=== PATIENT | female | born 1960 | race Caucasian/White ===

== ENCOUNTER → 2019-08-22 | Outpatient (CLI) | payer SELFPAY ==
[~2019-08-22] MED LIST: AMARYL1 M1 PO; AMARYL1 MG PO; BP MED; CALCIUM/MAGNESI1 T13 PO; CARVEDILOL6.25 MG PO; DYAZIDE 25 MG-31 CAP PO; FISH OIL500 MG PO; HUMALOG100 U/ML SC; JANUVIA25 MG PO; LEVEMIR10 ML SC; LEVEMIR100 U/ML SC; LISINOPRIL/HCTZ1 TA1 PO; METFORMIN500 MG PO; MULTIPLE VITAMI1 TAB PO; NEXIUM40 MG PO; ONDANSETRON HYDR4 M1 PO; PHENERGAN W/ DE30 ML PO; RITE AID MELATO10 MG PO; SIMVASTATIN40 MG PO; TYLENOL PM EX-1 EACH PO; VIBRAMYCIN100 MG PO; ZITHROMAX Z PA250 MG PO; [UNRECOGNIZED DRUG - OTHER] SG
== END | disposition home or self-care (01) ==
LOC: ORTHO 01:16
DX: M79.641 Pain in right hand (principal)

== ENCOUNTER → 2019-08-23 | Outpatient (CLI) | payer SELFPAY ==
[2019-08-23 09:37] LABS: BASO % 0.6 % (0.0-1.0); EOS # 0.1 10*3/uL (0.0-0.4); EOS % 1.8 % (1.0-4.0); HEMATOCRIT 35.4 % (37.0-47.0); HEMOGLOBIN 10.8 g/dl (12.0-16.0); LYMPH # 1.9 10*3/uL (1.3-4.4); LYMPH % 28.4 % (27.0-41.0); MEAN CELL VOLUME 78.3 fl (81.0-99.0); MEAN CORPUSCULAR HGB 23.9 pg (27.0-31.0); MEAN CORPUSCULAR HGB CONC 30.5 g/dl (33.0-37.0); MONO # 0.4 10*3/uL (0.1-1.0); MONO % 5.8 % (3.0-9.0); NEUT # 4.1 10*3/uL (2.3-7.9); NEUT % 62.9 % (47.0-73.0); PLATELET COUNT AUTOMATED 174 10*3/uL (130-400); RED BLOOD COUNT 4.52 10*6/uL (4.10-5.10); RED CELL DISTRI WIDTH 15.5 % (0-14.5); WHITE BLOOD COUNT 6.5 10*3/uL (4.8-10.8)
[2019-08-23 09:54] LABS: ALBUMIN 3.5 gm/dl (3.1-4.5); ALKALINE PHOSPHATASE 51 U/L (45-117); BUN 17 mg/dl (7-24); CHLORIDE 103 mmol/L (98-107); CHOLESTEROL 301 mg/dL (<200); CREATININE 0.63 mg/dL (0.55-1.02); HDL CHOLESTEROL 41 mg/dl (40-60); LDL CHOLESTEROL 184 mg/dL (9-159); POTASSIUM 3.9 mmol/L (3.5-5.1); SGOT/AST 19 IU/L (3-35); SGPT/ALT 29 U/L (12-78); SODIUM 137 mmol/L (136-145); TOTAL PROTEIN 7.2 gm/dL (6.4-8.2); TRIGLYCERIDES 378 mg/dl (<150); VLDL CHOLESTEROL 76 mg/dL (6-40)
[2019-08-24 06:37] LABS: CREATININE,URINE 38.3 mg/dL (Not Estab.); MICRO ALBUMIN/CRE RATIO 86.4 (0.0-30.0)
== END | disposition home or self-care (01) ==
LOC: LAB 09:09
PROVIDERS: Family Medicine
DX: I10 Essential (primary) hypertension (principal); E11.9 Type 2 diabetes mellitus without complications; Z79.4 Long term (current) use of insulin